=== PATIENT | male | born 1985 | race Caucasian/White ===

== ENCOUNTER 2021-06-21 16:37 | Emergency (ER) | payer BC, OTHER ==
[2021-06-21] MEDS ORDERED: Ketorolac 60 MG/2 ML SDV IM ONE (17:27)
== END 2021-06-21 18:20 | disposition home or self-care (01) ==
LOC: KA.ED 16:37
DX: S16.1XXA Strain of muscle, fascia and tendon at neck level, initial encounter (principal); M25.511 Pain in right shoulder; X58.XXXA Exposure to other specified factors, initial encounter
CPT/HCPCS: 72040; 73030-RT; 96372; 99283; 99283-25; J1885